=== PATIENT | male | born 1960 | race Asian ===

== ENCOUNTER 2021-03-24 08:07 | Emergency (ER) | payer OTHER ==
[~2021-03-24] VITALS: Ht 167.6 cm; Wt 64.5 kg
[2021-03-24] MEDS ORDERED: KETOROLAC TROMETHAMINE 60 MG/2 ML VIAL IM ONE (12:30)
[2021-03-24 12:57] VITALS: BP 189/114
== END 2021-03-24 14:34 | disposition home or self-care (01) ==
LOC: EMS 08:12
DX: M79.672 Pain in left foot (principal); I10 Essential (primary) hypertension
CPT/HCPCS: 73630; 96372; 99283; J1885